=== PATIENT | female | born 1955 | race Caucasian/White ===

== ENCOUNTER → 2016-11-26 | Outpatient (CLI) | payer OTHER ==
[~2016-11-26] MED LIST: CLOB15CR2 TP; FLUT16SP NS; HYDR200T5 PO; IBUP1TAB7 PO; IOHEXOL 240 MG/ML 50ML VIAL. ONE; IOHEXOL 300 MG/ML 75 ML VIAL. IV ONE; LEVO75TA PO; MELA3TAB PO; MULT-650 PO; POTA10CA53 PO; RIZA5TAB PO; VALS80TA3 PO
--- NOTE | 2016-11-26 10:15 | RAD ---
Examination: CT of the abdomen pelvis with oral and IV contrast History: History of generalized abdominal pain with nausea Comparison: 06/02/2010 Technique: Axial CT images of the abdomen pelvis were performed with oral and IV contrast with coronal and sagittal reformats are performed PQRS Compliance Statement: One or more of the following individualized dose reduction techniques were utilized for this examination: 1. Automated exposure control 2. Adjustment of the mA and/or kV according to patient size 3. Use of iterative reconstruction technique Findings: The visualized bibasal lungs grossly appears unremarkable. No evidence of free air identified in the abdomen. There is diffuse decreased attenuation noted throughout the liver likely hepatic steatosis. The visualized spleen, adrenals grossly appears unremarkable. The gallbladder is mildly distended. The visualized pancreas grossly appears unremarkable. The right and left kidneys enhance symmetrically. No evidence of hydronephrosis identified. The stomach is mildly distended. There is mild thickened appearance of the proximal portion stomach grossly appears similar to prior exam. The small bowel is nondilated. The appendix is normal. Feces and gas noted throughout the colon. Few sigmoid colon diverticulosis identified. The caliber of the aorta grossly appears unremarkable. Moderate aortic atherosclerosis The urinary bladder is mildly distended. Moderate degenerative changes identified in the visualized thoracal lumbar spine. Impression: 1. No acute intra-abdominal findings. 2. Hepatic steatosis. 3. Mild thickened appearance of the wall of the proximal stomach grossly appears similar to prior exam, nonspecific. 4. Few sigmoid colon diverticulosis.
== END | disposition home or self-care (01) ==
LOC: CT 08:00
PROVIDERS: ATTEND Nurse Practitioner Family
DX: R10.9 Unspecified abdominal pain (principal); I10 Essential (primary) hypertension; E11.9 Type 2 diabetes mellitus without complications; K76.0 Fatty (change of) liver, not elsewhere classified; K57.30 Diverticulosis of large intestine without perforation or abscess without bleeding
CPT/HCPCS: 74177; Q9966; Q9967